=== PATIENT | male | born 1955 | race African-American/Black ===

== ENCOUNTER 2019-08-20 07:06 | Inpatient (IN) | payer MEDICAID ==
[~2019-08-20] VITALS: Ht 182.9 cm; Wt 70.3 kg
[2019-08-20] VITALS (12 sets, daily range): BP systolic 106–131; BP diastolic 71–86
[~2019-08-20 07:06] MED LIST: ACET-2708 PO; ASPI-1497 PO; FAMO20TA8 PO
[2019-08-20] MEDS ORDERED: LACTATED RINGERS 1,000 ML IV SCH (08:00)
[2019-08-20] MEDS ORDERED: THROMBIN (BOVINE) 5000 UNITS/VIAL TOP ONE (08:12)
[2019-08-20] MEDS ORDERED: BACITRACIN 50,000 UNITS/VIAL ONE (08:12)
[2019-08-20] MEDS ORDERED: LIDOCAINE HCL/EPINEPHRINE 1%-EPI 1:100,000 20 ML VIAL ONE (08:12)
[2019-08-20] MEDS ORDERED: HYDROCODONE/ACETAMINOPHEN 5/325MG TABLET PO PRN (08:15)
[2019-08-20] MEDS ORDERED: NICARDIPINE 100 MG in SODIUM CHLORIDE 0.9% 60 ML IV PRN (08:15)
[2019-08-20] MEDS ORDERED: MORPHINE SULFATE 2 MG/ML CPJ (NOT FOR IM USE) IV PRN ×2 (08:15→16:00)
[2019-08-20] MEDS ORDERED: ROCURONIUM BROMIDE 10MG/ML VIAL 5ML IV ONE (08:23)
[2019-08-20] MEDS ORDERED: FENTANYL CITRATE/PF 50MCG/ML 2ML VIAL ONE (08:23)
[2019-08-20] MEDS ORDERED: PROPOFOL 200MG/20ML VIAL IV ONE (08:24)
[2019-08-20] MEDS ORDERED: MIDAZOLAM HCL 2 MG/2 ML VIAL ONE (08:24)
[2019-08-20] MEDS ORDERED: NEOSTIGMINE METHYLSULFATE 1MG/ML 10 ML VIAL ONE (08:24)
[2019-08-20] MEDS ORDERED: GLYCOPYRROLATE 0.2 MG/ML 2ML VIAL ONE (08:25)
[2019-08-20] MEDS ORDERED: ONDANSETRON HCL 4MG/2ML INJ ONE (08:35)
[2019-08-20] MEDS ORDERED: DEXAMETHASONE 4MG/ML 1ML VIAL ONE (08:35)
[2019-08-20 09:25] LABS: CLARITY URINE CLEAR (CLEAR); COLOR URINE YELLOW (YELLOW); KETONES URINE TRACE (NEGATIVE); LEUKOCYTE ESTERASE URINE NEGATIVE (NEGATIVE); NITRITE URINE NEGATIVE (NEGATIVE); OCCULT BLOOD URINE NEGATIVE (NEGATIVE); PH URINE 5.5 (4.5-8.0); PROTEIN URINE NEGATIVE (NEGATIVE); SPECIFIC GRAVITY URINE 1.017 (1.005-1.030); UROBILINOGEN URINE 0.2 E.U./dL (0.2-1.0)
[2019-08-20] MEDS ORDERED: HYDROMORPHONE HCL/PF 2MG/ML CPJ IV PRN (09:30)
[2019-08-20] MEDS ORDERED: ONDANSETRON HCL 4MG/2ML INJ IV PRN (09:30)
[2019-08-20] MEDS ORDERED: MEPERIDINE HCL/PF 25MG/ML CPJ IV PRN (09:30)
[2019-08-20] MEDS ORDERED: LABETALOL 5MG/ML SYR 20 MG/4 ML SYRINGE IV PRN (09:30)
[2019-08-20 10:12] LABS: *AMPHETAMINES SCREEN URINE NEGATIVE (NEGATIVE); *BARBITURATES SCREEN URINE NEGATIVE (NEGATIVE); *BENZODIAZEPINES SCREEN URINE NEGATIVE (NEGATIVE); *COCAINE SCREEN URINE NEGATIVE (NEGATIVE); METHADONE URINE SCREEN NEGATIVE (NEGATIVE)
[2019-08-20 10:13] LABS: CANNABINOID URINE SCREEN NEGATIVE (NEGATIVE); OPIATES URINE SCREEN NEGATIVE (NEGATIVE); PHENCYCLIDINE URINE SCREEN NEGATIVE (NEGATIVE)
[2019-08-20] MEDS ORDERED: IPRATROPIUM/ALBUTEROL 0.5-3(2.5)MG/3ML NEB HHN NR (10:25)
[2019-08-20] MEDS ORDERED: NALOXONE INJ IV PRN (10:45)
[2019-08-20] MEDS ORDERED: DIPHENHYDRAMINE INJ IV PRN (10:45)
[2019-08-20] MEDS ORDERED: ONDANSETRON INJ IV PRN (10:45)
[2019-08-20] MEDS ORDERED: HYDROMORPHONE PCA 10MG/50ML IV PRN (10:45)
[2019-08-20] MEDS: DEXAMETHASONE 4MG/ML 1ML VIAL IV SCH ×2 (12:51→17:53)
[2019-08-20] MEDS ORDERED: CEFAZOLIN 1000MG PREMIX 50 ML IV SCH (13:00)
[2019-08-20] MEDS: CEFAZOLIN SODIUM 1000MG/VIAL IV SCH (14:00)
[2019-08-20] MEDS: DEXT 5%/LACTATED RINGERS 1,000 ML IV SCH (17:54)
[2019-08-20] MEDS: CEFAZOLIN 1000MG PREMIX 50 ML IV SCH (22:42)
[2019-08-21] VITALS (83 sets, daily range): BP systolic 85–126; BP diastolic 53–82
[2019-08-21] MEDS: DEXAMETHASONE 4MG/ML 1ML VIAL IV SCH ×3 (00:08→11:58)
[2019-08-21] MEDS: CEFAZOLIN 1000MG PREMIX 50 ML IV SCH ×2 (05:42→14:54)
[2019-08-21] MEDS: DEXT 5%/LACTATED RINGERS 1,000 ML IV SCH ×2 (05:43→14:53)
[2019-08-21 06:14] LABS: BASOPHILS % 0.3 % (0.0-2.0); HEMATOCRIT. 38.8 % (42.0-52.0); HEMOGLOBIN. 13.2 g/dL (14.0-18.0); LYMPHOCYTES % 7.6 % (20.0-50.0); MEAN CORPUSCULAR HEMOGLOBIN 27.7 pg (28.0-32.0); MEAN CORPUSCULAR VOLUME 81.3 fL (80.0-94.0); MEAN PLATELET VOLUME 8.3 fl (7.4-10.4); MONOCYTES % 3.5 % (2.0-8.0); NEUTROPHILS % 88.6 % (40.0-76.0); PLATELET 251 x1000/uL (130-400); RED BLOOD CELL COUNT 4.77 mill/uL (4.7-6.1); RED CELL DISTRIBUTION WIDTH 12.9 % (11.6-14.6)
[2019-08-21 07:00] LABS: CHLORIDE 105 mEq/L (98-107)
[2019-08-21] MEDS: PANTOPRAZOLE 40MG DR TABLET PO SCH (09:19)
[2019-08-22] VITALS (44 sets, daily range): BP systolic 64–155; BP diastolic 39–117
[2019-08-22] MEDS: DEXT 5%/LACTATED RINGERS 1,000 ML IV SCH ×2 (00:01→10:15)
[2019-08-22] MEDS: PANTOPRAZOLE 40MG DR TABLET PO SCH (06:32)
[2019-08-22 06:39] LABS: BASOPHILS % 0.1 % (0.0-2.0); EOSINOPHILS % 0.1 % (0.0-5.0); HEMATOCRIT. 37.8 % (42.0-52.0); HEMOGLOBIN. 12.9 g/dL (14.0-18.0); LYMPHOCYTES % 17.8 % (20.0-50.0); MEAN CORPUSCULAR HEMOGLOBIN 27.9 pg (28.0-32.0); MEAN CORPUSCULAR VOLUME 81.9 fL (80.0-94.0); MEAN PLATELET VOLUME 8.5 fl (7.4-10.4); PLATELET 230 x1000/uL (130-400); RED BLOOD CELL COUNT 4.62 mill/uL (4.7-6.1); RED CELL DISTRIBUTION WIDTH 13.5 % (11.6-14.6)
[2019-08-22 07:07] LABS: CHLORIDE 108 mEq/L (98-107)
[2019-08-22] MEDS ORDERED: HYDR-4001 MT ×2 (11:14→13:12)
== END 2019-08-22 13:00 | disposition home or self-care (01) | DRG 321 ==
LOC: OR 07:06 → 5EST 07:07
PROVIDERS: ADMIT Internal Medicine; ATTEND Internal Medicine
PROC: 0RG10K0 Fusion of Cervical Vertebral Joint with Nonautologous Tissue Substitute, Anterior Approach, Anterior Column, Open Approach (ICD-10-PCS; principal; 2019-08-20)
PROC: 0PB30ZZ Excision of Cervical Vertebra, Open Approach (ICD-10-PCS; 2019-08-20)
DX: M48.02 Spinal stenosis, cervical region (principal); G82.50 Quadriplegia, unspecified; G99.2 Myelopathy in diseases classified elsewhere; M54.12 Radiculopathy, cervical region; K21.9 Gastro-esophageal reflux disease without esophagitis; R26.2 Difficulty in walking, not elsewhere classified; F17.210 Nicotine dependence, cigarettes, uncomplicated; F12.90 Cannabis use, unspecified, uncomplicated; Z79.82 Long term (current) use of aspirin; Z79.1 Long term (current) use of non-steroidal anti-inflammatories (NSAID); Z79.899 Other long term (current) drug therapy; I69.354 Hemiplegia and hemiparesis following cerebral infarction affecting left non-dominant side; Z98.1 Arthrodesis status
CPT/HCPCS: 36415; 72040; 72141; 76000; 80048; 80305; 81003; 85025; 88304; 88311; 95925; 95926; 95928; 95929; 97116; 97162; 97166; 97530; 97535; C1713; J0690; J1100; J1170; J2250; J2405; J2704; J2710; J3010; J3490; J7121; L0172